=== PATIENT | male | born 1990 | race African-American/Black ===

== ENCOUNTER 2023-01-03 19:55 | Emergency (ER) | payer MEDICAID ==
[~2023-01-03] VITALS: Ht 180.3 cm; Wt 70.0 kg
[2023-01-03 20:00] VITALS: BP 128/65
[2023-01-03] MEDS ORDERED: LIDOCAINE HCL/PF 1% 10 MG/ML 5ML VIAL INFIL ONE (21:15)
[2023-01-03] MEDS ORDERED: TETANUS, DIPHTHERIA, PERTUSSIS VAC/PF 0.5ML (>10YR OLD) IM ONE (21:15)
[2023-01-03] MEDS ORDERED: BACITRACIN ZINC OINT UDPKT TOP ONE (21:15)
== END 2023-01-03 23:00 | disposition home or self-care (01) ==
LOC: ER 19:55
DX: S61.217A Laceration without foreign body of left little finger without damage to nail, initial encounter (principal); W26.8XXA Contact with other sharp object(s), not elsewhere classified, initial encounter; Y93.89 Activity, other specified; Y92.89 Other specified places as the place of occurrence of the external cause; Y99.8 Other external cause status; J45.909 Unspecified asthma, uncomplicated
CPT/HCPCS: 12001; 73130; 90471; 90715; 99283; J3490; Z7610